=== PATIENT | female | born 1990 | race Caucasian/White ===

== ENCOUNTER 2017-09-15 16:20 | Emergency (ER) | payer MEDICAID ==
[2017-09-15] MEDS ORDERED: NS 1,000 ML IV ONE (17:19)
[2017-09-15] MEDS ORDERED: LORazepam 2 MG/ML INJ IVP ONE (17:19)
--- NOTE | 2017-09-15 17:22 | EDPHY ---
H & P Stated Complaint: N/V for 4 weeks, trying to withdraw from ETOH last drink approx 3 hours ago Time Seen by Provider: 09/15/17 16:56 HPI/ROS: CHIEF COMPLAINT: "I just need to be centered" HISTORY OF PRESENT ILLNESS: 27-year-old female history of bipolar disorder, off of all medications for the past 1.5 years, followed by [facility] , arrives via private vehicle with a friend stating that for the past 4 weeks she has been experiencing recurrent retching and vomiting, has had little to no oral intake. She did have a few bites of soup/ramen last evening however soon thereafter started retching. She has history of alcoholism, has been sober for several months however 2 weeks ago showed drinking heavily, drinks until unconsciousness every evening. Regarding her bipolar disorder, she does experience intermittent suicidal ideation, none currently, no plan. No homicidal ideation She denies abdominal pain. Denies hallucination. Denies seizure. Denies back or flank pain. Denies urinary abnormality. REVIEW OF SYSTEMS: A ten point review of systems was performed and is negative with the exception of the items mentioned in the HPI PAST MEDICAL & SURGICAL HISTORY: Bipolar disorder SOCIAL HISTORY: Last drink of alcohol 3 hr ago PHYSICAL EXAM (Prior to examination, patient consented to physical exam, hands were washed and my usual and customary physical exam procedures followed) 1) GENERAL: Well-developed, well-nourished, alert and oriented. Appears to be in no acute distress. 2) HEAD: Normocephalic, atraumatic 3) HEENT: Pupils equal, round, reactive to light bilaterally. Sclera anicteric. Nasopharynx, oropharynx, clear, no lesions. Dry mucous membranes Ears bilaterally with normal tympanic membranes. 4) NECK: Full range of motion, no meningeal signs. 5) LUNGS: Clear auscultation bilaterally, no wheezes, no rhonchi, no retractions. 6) HEART: Regular rate and rhythm, no murmur, no heave, no gallop. 7) ABDOMEN: No guarding, no rebound, no focal tenderness, negative McBurney's, negative Blackwell's, negative Rovsing's, negative peritoneal sign, unable to elicit any abdominal pain on exam 8) MUSCULOSKELETAL: Moving all extremities, no focal areas of tenderness, no obvious trauma. No peripheral edema or discoloration. 9) BACK: No CVA tenderness, no midline vertebral tenderness, no fluctuance, no step-off, no obvious trauma, no visual or palpable abnormality. 10) SKIN: No rash, no petechiae. 11) Psychiatric: Patient is oriented X 3, there is no agitation. Depressed, withdrawn, flat affect, no tremor DIFFERENTIAL DIAGNOSIS: In no particular order including but not limited to delirium tremens, acute alcohol withdrawal, suicidal ideation - Personal History LMP (Females 10-55): Over 28 Days Ago - Medical/Surgical History Hx Asthma: No Hx Chronic Respiratory Disease: No Hx Diabetes: No Hx Cardiac Disease: No Hx Renal Disease: No Hx Cirrhosis: No Hx Alcoholism: No Hx HIV/AIDS: No Hx Splenectomy or Spleen Trauma: No Other PMH: ETOH abuse - Social History Smoking Status: Never smoked Constitutional: Initial Vital Signs Temperature (C) 37.1 C 09/15/17 16:22 Heart Rate 82 09/15/17 16:22 Respiratory Rate 18 09/15/17 16:22 Blood Pressure 105/81 H 09/15/17 16:22 O2 Sat (%) 93 09/15/17 16:22 O2 Delivery Mode Room Air Allergies/Adverse Reactions: No Known Allergies Allergy (Unverified 09/15/17 16:21) Home Medications: Medication Instructions Recorded NK [No Known Home Meds] 09/15/17 Medical Decision Making ED Course/Re-evaluation: Patient was re-evaluated with serial examinations. At 6:50 p.m. she is sleeping , easily woken, boyfriend at bedside. We discussed her laboratory studies including, her elevated alcohol level. She has had no complaints of abdominal pain. Discussed her normal lipase. Doubt acute pancreatitis. She is concerned that she will start withdrawing from alcohol. [facility], boyfriend will drive her there, given Librium prepack and Zofran. She denies suicidal or homicidal ideations. Denies hallucination. Doubt delirium tremens. I do not think the patient meets criteria for an M1 hold. I do not think she is gravely disabled. She feels comfortable being discharged. Usual and customary discharge precautions and instructions provided. Care of patient under supervision of secondary supervising physician Dr Boss. - Data Points Laboratory Results: Laboratory Results 09/15/17 17:27 09/15/17 17:27 09/15/1718 09/15/17 17:27 17:27 17:27 WBC 4.69 10^3/uL 10^3/uL (3.80-9.50) RBC 4.82 10^6/uL 10^6/uL (4.18-5.33) Hgb 15.0 g/dL g/dL (12.6-16.3) Hct 42.8 % % (38.0-47.0) MCV 88.8 fL fL (81.5-99.8) MCH 31.1 pg pg (27.9-34.1) MCHC 35.0 g/dL g/dL (32.4-36.7) RDW 14.0 % % (11.5-15.2) Plt Count 311 10^3/uL 10^3/uL (150-400) MPV 9.6 fL fL (8.7-11.7) Neut % (Auto) 39.7 % % (39.3-74.2) Lymph % (Auto) 50.7 % H % (15.0-45.0) Darke % (Auto) 7.7 % % (4.5-13.0) Eos % (Auto) 1.1 % % (0.6-7.6) Baso % (Auto) 0.6 % % (0.3-1.7) Nucleat RBC Rel Count 0.0 % % (0.0-0.2) Absolute Neuts (auto) 1.86 10^3/uL 10^3/uL (1.70-6.50) Absolute Lymphs (auto) 2.38 10^3/uL 10^3/uL (1.00-3.00) Absolute Monos (auto) 0.36 10^3/uL 10^3/uL (0.30-0.80) Absolute Eos (auto) 0.05 10^3/uL 10^3/uL (0.03-0.40) Absolute Basos (auto) 0.03 10^3/uL 10^3/uL (0.02-0.10) Absolute Nucleated RBC 0.00 10^3/uL 10^3/uL (0-0.01) Immature Gran % 0.2 % % (0.0-1.1) Immature Gran # 0.01 10^3/uL 10^3/uL (0.00-0.10) Sodium 148 mEq/L H mEq/L (135-145) Potassium 4.0 mEq/L mEq/L (3.5-5.2) Chloride 102 mEq/L mEq/L (97-110) Carbon Dioxide 27 mEq/l mEq/l (22-31) Anion Gap 19 mEq/L H mEq/L (8-16) BUN 10 mg/dL mg/dL (7-23) Creatinine 0.6 mg/dL mg/dL (0.6-1.0) Estimated GFR > 60 Glucose 82 mg/dL mg/dL (70-100) Calcium 9.2 mg/dL mg/dL (8.5-10.4) Total Bilirubin 0.7 mg/dL mg/dL (0.1-1.4) Conjugated Bilirubin 0.5 mg/dL mg/dL (0.0-0.5) Unconjugated Bilirubin 0.2 mg/dL mg/dL (0.0-1.1) AST 47 IU/L H IU/L (14-46) ALT 27 IU/L IU/L (9-52) Alkaline Phosphatase 107 IU/L IU/L (38-126) Total Protein 8.1 g/dL g/dL (6.3-8.2) Albumin 4.6 g/dL g/dL (3.5-5.0) Lipase 56 IU/L IU/L (23-300) Beta HCG, Qual NEGATIVE Specimen Hemolysis 102 Ethyl Alcohol 364 mg/dL H mg/dL (0-10) Medications Given: Discontinued Medications Sodium Chloride (Ns) 1,000 mls @ 0 mls/hr IV ONCE ONE PRN Reason: Wide Open Stop: 09/15/17 17:20 Last Admin: 09/15/17 17:42 Dose: 1,000 mls Lorazepam (Ativan Injection) 1 mg IVP EDNOW ONE Stop: 09/15/17 17:20 Last Admin: 09/15/17 17:47 Dose: Not Given Departure - Departure Disposition: Home, Routine, Self-Care Clinical Impression: Alcohol abuse Condition: Good Instructions: Chlordiazepoxide (By mouth), Ondansetron (By injection), Alcohol Intoxication (ED) Additional Instructions: Return to the ER if you develop tremors, hallucinations, vomiting or any other symptoms that concern you. Referrals: [facility] [Outside] - As per Instructions
[2017-09-15 17:39] LABS: PLATELET COUNT 311 10^3/uL (150-400)
[2017-09-15] MEDS ORDERED: CHLORDIAZEPOXIDE 25MG PREPK#6 BTL TAKEHOME ONE (18:54)
[2017-09-15] MEDS ORDERED: ONDANSETRON 4MG PREPACK#2 BTL TAKEHOME ONE (18:54)
[2017-09-15 19:24] VITALS: BP 101/66
== END 2017-09-15 19:42 | disposition home or self-care (01) ==
DX: R11.10 Vomiting, unspecified (principal); F10.129 Alcohol abuse with intoxication, unspecified
CPT/HCPCS: G0480; J2060

== ENCOUNTER 2018-01-04 13:53 | Emergency (ER) | payer MEDICAID ==
--- NOTE | 2018-01-04 15:12 | EDPHY ---
H & P Time Seen by Provider: 01/04/18 14:54 HPI/ROS: Chief complaint. Abdominal pain HPI. 27-year-old female presents with complaint of abdominal pain for 2 weeks. She has been vomiting and tells me yesterday she vomited 8 times. The pain is both sides low abdomen. She describes as sharp. No radiation. Seems to be worse with eating. No bowel movement for 2 weeks. No fever. No urinary symptoms. Last menstrual. 2 months ago and previously had been regular. No previous abdominal surgery ROS Constitutional. no fever/chills, no weakness Eyes. no problems with vision ENT. no sore throat, no nasal drainage Cardiovascular. no chest pain Respiratory. no shortness of breath, no cough Abdominal. Low abdominal pain with nausea vomiting. Constipation for 2 weeks . no problems urinating MS. no calf pain/swelling, no neck/back pain, no joint pain Skin. no rash Lymph. no swollen glands Neuro. no headache, no dizziness, no difficulty walking or with speech Past Medical/Surgical History: Alcoholism, depression, anorexia, bipolar illness, bulimia Social History: Single, nonsmoker, no alcohol Smoking Status: Never smoked Physical Exam: General Appearance: Alert well-developed female mild distress vital signs are stable Eyes: Pupils equal and round no pallor or injection. ENT, Mouth: Mucous membranes are moist. Respiratory: There are no retractions, lungs are clear to auscultation. Cardiovascular: Regular rate and rhythm. Gastrointestinal: Abdomen is soft with mild bilateral low abdominal tenderness. No masses. No organomegaly. No flank tenderness. Normal bowel sounds Neurological: Awake and alert, sensory and motor exams grossly normal. Skin: Warm and dry, no rashes. Musculoskeletal: Neck is supple nontender. Extremities symmetrical, full range of motion. Psychiatric: Patient is oriented X 3, there is no agitation. Constitutional: Initial Vital Signs Temperature (C) 36.6 C 01/04/18 14:01 Heart Rate 89 01/04/18 14:01 Respiratory Rate 16 01/04/18 14:01 Blood Pressure 117/84 H 01/04/18 14:01 O2 Sat (%) 91 L 01/04/18 14:01 O2 Delivery Mode Room Air Allergies/Adverse Reactions: No Known Allergies Allergy (Unverified 09/15/17 16:21) Medical Decision Making - Diagnostics Imaging Results: Imaging Impressions Abdomen X-Ray 01/04/18 16:58 Impression: Constipation. No evidence of bowel obstruction. Upright abdominal x-ray shows no evidence of free air or air-fluid levels. Consistent with constipation Procedures: IV normal saline ED Course/Re-evaluation: Serial evaluations patient is stable. 6:10 p.m.. Patient and I discussed imaging and lab results. We discussed treatment plan including criteria for return importance of follow-up further evaluation. She expresses understanding and agreement Differential Diagnosis: No evidence for acute abdomen or urinary tract infection. No evidence for bowel obstruction. Consistent with constipation - Data Points Laboratory Results: Laboratory Results 01/04/18 15:40 01/04/18 15:40 01/04/18 01/04/18 01/04/18 17:20 15:40 15:40 WBC RBC Hgb Hct MCV MCH MCHC RDW Plt Count MPV Neut % (Auto) Lymph % (Auto) Placer % (Auto) Eos % (Auto) Baso % (Auto) Nucleat RBC Rel Count Absolute Neuts (auto) Absolute Lymphs (auto) Absolute Monos (auto) Absolute Eos (auto) Absolute Basos (auto) Absolute Nucleated RBC Immature Gran % Immature Gran # Sodium 140 mEq/L mEq/L (135-145) Potassium 3.4 mEq/L mEq/L (3.3-5.0) Chloride 99 mEq/L mEq/L (97-110) Carbon Dioxide 26 mEq/l mEq/l (22-31) Anion Gap 15 mEq/L mEq/L (8-16) BUN 6 mg/dL L mg/dL (7-23) Creatinine 0.6 mg/dL mg/dL (0.6-1.0) Estimated GFR > 60 Glucose 66 mg/dL L mg/dL (70-100) Calcium 8.6 mg/dL mg/dL (8.5-10.4) Total Bilirubin 0.5 mg/dL mg/dL (0.1-1.4) Conjugated Bilirubin 0.1 mg/dL mg/dL (0.0-0.5) Unconjugated Bilirubin 0.4 mg/dL mg/dL (0.0-1.1) AST 177 IU/L H IU/L (14-46) ALT 86 IU/L H IU/L (9-52) Alkaline Phosphatase 116 IU/L IU/L (38-126) Total Protein 6.1 g/dL L g/dL (6.3-8.2) Albumin 3.8 g/dL g/dL (3.5-5.0) Lipase 95 IU/L IU/L (23-300) Beta HCG, Qual NEGATIVE Urine Color YELLOW Urine Appearance MODERATELY TURBID Urine pH 7.0 (5.0-7.5) Ur Specific [place] 1.004 (1.002-1.030) Urine Protein NEGATIVE (NEGATIVE) Urine Ketones NEGATIVE (NEGATIVE) Urine Blood NEGATIVE (NEGATIVE) Urine Nitrate NEGATIVE (NEGATIVE) Urine Bilirubin NEGATIVE (NEGATIVE) Urine Urobilinogen NEGATIVE EU EU (0.2-1.0) Ur Leukocyte Esterase NEGATIVE (NEGATIVE) Urine RBC 1-3 /hpf /hpf (0-3) Urine WBC 3-5 /hpf H /hpf (0-3) Ur Epithelial Cells 2+ /lpf H /lpf (NONE-1+) Urine Bacteria 3+ /hpf H /hpf (NONE SEEN) Urine Glucose NEGATIVE (NEGATIVE) 01/04/18 15:40 WBC 4.36 10^3/uL 10^3/uL (3.80-9.50) RBC 3.84 10^6/uL L 10^6/uL (4.18-5.33) Hgb 13.3 g/dL g/dL (12.6-16.3) Hct 37.2 % L % (38.0-47.0) MCV 96.9 fL fL (81.5-99.8) MCH 34.6 pg H pg (27.9-34.1) MCHC 35.8 g/dL g/dL (32.4-36.7) RDW 16.1 % H % (11.5-15.2) Plt Count 156 10^3/uL 10^3/uL (150-400) MPV 9.9 fL fL (8.7-11.7) Neut % (Auto) 38.5 % L % (39.3-74.2) Lymph % (Auto) 49.1 % H % (15.0-45.0) Placer % (Auto) 10.8 % % (4.5-13.0) Eos % (Auto) 0.5 % L % (0.6-7.6) Baso % (Auto) 0.9 % % (0.3-1.7) Nucleat RBC Rel Count 0.0 % % (0.0-0.2) Absolute Neuts (auto) 1.68 10^3/uL L 10^3/uL (1.70-6.50) Absolute Lymphs (auto) 2.14 10^3/uL 10^3/uL (1.00-3.00) Absolute Monos (auto) 0.47 10^3/uL 10^3/uL (0.30-0.80) Absolute Eos (auto) 0.02 10^3/uL L 10^3/uL (0.03-0.40) Absolute Basos (auto) 0.04 10^3/uL 10^3/uL (0.02-0.10) Absolute Nucleated RBC 0.00 10^3/uL 10^3/uL (0-0.01) Immature Gran % 0.2 % % (0.0-1.1) Immature Gran # 0.01 10^3/uL 10^3/uL (0.00-0.10) Sodium Potassium Chloride Carbon Dioxide Anion Gap BUN Creatinine Estimated GFR Glucose Calcium Total Bilirubin Conjugated Bilirubin Unconjugated Bilirubin AST ALT Alkaline Phosphatase Total Protein Albumin Lipase Beta HCG, Qual Urine Color Urine Appearance Urine pH Ur Specific [place] Urine Protein Urine Ketones Urine Blood Urine Nitrate Urine Bilirubin Urine Urobilinogen Ur Leukocyte Esterase Urine RBC Urine WBC Ur Epithelial Cells Urine Bacteria Urine Glucose Medications Given: Discontinued Medications Sodium Chloride (Ns) 1,000 mls @ 0 mls/hr IV EDNOW ONE; Wide Open PRN Reason: Protocol Stop: 01/04/18 15:22 Last Admin: 01/04/18 15:47 Dose: 1,000 mls Departure - Departure Disposition: Home, Routine, Self-Care Clinical Impression: Abdominal pain Qualifiers: Abdominal location: lower abdomen, unspecified Qualified Code(s): R10.30 - Lower abdominal pain, unspecified Condition: Good Instructions: Constipation (ED), High Fiber Diet (ED) Additional Instructions: Increased fluids including fruit and prune juice. Bisacodyl as directed Milk of magnesia as directed for constipation May purchase a bottle of magnesium citrate at the grocery store and drink whole bottle of magnesium citrate. Return for worsening symptoms. Recheck in 2 days for continuing symptoms Referrals: Montserrat Parry MD [Primary Care Provider] - 2-3 days, if not improved
[2018-01-04] MEDS ORDERED: NS 1,000 ML IV ONE (15:21)
[2018-01-04 15:56] LABS: PLATELET COUNT 156 10^3/uL (150-400)
[2018-01-04 18:25] VITALS: BP 103/74
== END 2018-01-04 18:23 | disposition home or self-care (01) ==
DX: R10.30 Lower abdominal pain, unspecified (principal)

== ENCOUNTER 2018-01-05 03:11 | Emergency (ER) | payer MEDICAID ==
--- NOTE | 2018-01-05 05:18 | EDPHY ---
H & P Stated Complaint: Lower abd pain - no BM in 3 weeks, D/C'd earleir today. Time Seen by Provider: 01/05/18 03:33 HPI/ROS: Chief Complaint: Abdominal pain, constipation HPI: 27-year-old woman presenting with 3 weeks of worsening abdominal pain. Patient states she has not had much appetite. Has not had a bowel movement and 3 weeks. She was seen earlier today in this emergency department. At that time she had abdominal x-ray which showed significant constipation. She was sent home with magnesium citrate recommendation. Patient states she drank magnesium citrate and now has worsening abdominal pain and cramping. She has not had any bowel movements. No fevers or chills. She has vomited several times. ROS: 10 point Review of Systems is negative except as noted in the HPI. PMH: Bulimia and anorexia Social History: No smoking, no alcohol, no recreational drug use Family History: non-contributory Physical Exam: Gen: Awake, Alert, No Distress HEENT: Nose: no rhinorrhea Eyes: PERRLA, EOMI Mouth: Moist mucosa Neck: Supple, no JVD Chest: nontender, lungs clear to auscultation Heart: S1, S2 normal, no murmur Abd: Soft, mildly distended, mild lower abdominal tenderness, no guarding Back: no CVA tenderness, no midline tenderness Ext: no edema, non-tender Skin: no rash Neuro: CN II-XII intact, Sensation grossly intact, Strength 5/5 in bilateral upper and lower extremities - Personal History Current Tetanus/Diphtheria Vaccine: No Current Tetanus Diphtheria and Acellular Pertussis (TDAP): No - Medical/Surgical History Hx Asthma: No Hx Chronic Respiratory Disease: No Hx Diabetes: No Hx Cardiac Disease: No Hx Renal Disease: No Hx Cirrhosis: No Hx Alcoholism: No Hx HIV/AIDS: No Hx Splenectomy or Spleen Trauma: No Other PMH: ETOH abuse, depression, anorexia, bulimia, - Social History Smoking Status: Never smoked Constitutional: Initial Vital Signs Temperature (C) 36.7 C 01/05/18 03:16 Heart Rate 108 H 01/05/18 03:16 Respiratory Rate 16 01/05/18 03:16 Blood Pressure 113/79 01/05/18 03:16 O2 Sat (%) 93 01/05/18 03:16 O2 Delivery Mode Room Air Allergies/Adverse Reactions: No Known Allergies Allergy (Unverified 09/15/17 16:21) Home Medications: Medication Instructions Recorded NK [No Known Home Meds] 01/05/18 Medical Decision Making ED Course/Re-evaluation: I have reviewed the patient's abdominal x-ray. She had significant constipation. Will treat with a high soapsuds enema and reassess. Patient has had success with the enema. She has had a large bowel movement. She is feeling much improved. Abdomen is less distended is soft and nontender. Will discharge her home with constipation instructions, have her follow up with primary care physician for further evaluation. Departure - Departure Disposition: Home, Routine, Self-Care Clinical Impression: Constipation Condition: Good Instructions: Constipation (ED) Additional Instructions: Make sure to drink at least eight 8 oz glasses of water a day. You may take MiraLax daily according to package instructions. If you feel constipated drink 1/2 bottle of magnesium citrate. Wait 1-2 hours. If you do not have a bowel movement after that time drink the 2nd half of the bottle. If you continues to be constipated you may use a Fleet's enema, available over- the-counter. Referrals: Montserrat Parry MD [Primary Care Provider] - As per Instructions
[2018-01-05 05:38] VITALS: BP 110/84
== END 2018-01-05 05:42 | disposition home or self-care (01) ==
DX: K59.00 Constipation, unspecified (principal); F32.9 Major depressive disorder, single episode, unspecified

== ENCOUNTER 2018-01-14 04:43 | Emergency (ER) | payer MEDICAID ==
[2018-01-14] MEDS ORDERED: NS 1,000 ML IV ONE ×2 (04:51)
--- NOTE | 2018-01-14 04:52 | EDPHY ---
H & P Source: Patient, Other - Medical/Surgical History Hx Asthma: No Hx Chronic Respiratory Disease: No Hx Diabetes: No Hx Cardiac Disease: No Hx Renal Disease: No Hx Cirrhosis: No Hx Alcoholism: No Hx HIV/AIDS: No Hx Splenectomy or Spleen Trauma: No Other PMH: ETOH abuse, depression, anorexia, bulimia, - Social History Smoking Status: Never smoked Time Seen by Provider: 01/14/18 04:51 HPI/ROS: HPI CHIEF COMPLAINT: Alcohol intoxication, not feeling well HISTORY OF PRESENT ILLNESS: 27-year-old female, presents emergency room by private vehicle intoxicated with alcohol, additionally she reports she has been feeling unwell. Recently diagnosed with an infection on antibiotics. Per her roommate she has been in bed for the past 5 days however this evening she started drinking alcohol had over 5 shots of liquor. She presents emergency room unable to walking globally weak. She would be taken in carried out of the car by medical staff, additionally wheelchair in back to ER room 5. Upon arrival she is intoxicated smells of alcohol. She states she feels weak all over. Past Medical History: Past medical history significant for bipolar disorder, bulimia, anorexia constipation Past Surgical History: No recent surgery Social History: Alcoholism daily alcohol use. Family History: Noncontributory ROS REVIEW OF SYSTEMS: 10 Systems were reviewed and negative with the exception of the elements mentioned in the history of present illness. Exam Constitutional intoxicated, smells of alcohol triage nursing summary reviewed, vital signs reviewed, awake/alert. This appearing. Eyes normal conjunctivae and sclera, EOMI, PERRLA. HENT normal inspection, atraumatic, moist mucus membranes, no epistaxis, neck supple/ no meningismus, no raccoon eyes. Respiratory clear to auscultation bilaterally, normal breath sounds, no respiratory distress, no wheezing. Cardiovascular rate normal, regular rhythm, no murmur, no edema, distal pulses normal. Gastrointestinal soft, non-tender, no rebound, no guarding, normal bowel sounds, no distension, no pulsatile mass. Genitourinary no CVA tenderness. Musculoskeletal no midline vertebral tenderness, full range of motion, no calf swelling, no tenderness of extremities, no meningismus, good pulses, neurovascularly intact. Skin pink, warm, & dry, no rash, skin atraumatic. Neurologic intoxicated, smells of alcohol, slurring speech awake, alert and oriented x 3, AAOx3, moves all 4 extremities equally, motor intact, sensory intact, CN II-XII intact, normal cerebellar, normal vision Psychiatric normal mood/affect. Heme/Lymph/Immune no lymphadenopathy. Differential Diagnosis: The includes but is not limited to in a particular order alcohol intoxication, dehydration, electrolyte disturbance, infection Medical Decision Making: Plan for this patient IV establishment IV fluid bolus , check electrolytes, CBC, alcohol level. Re-evaluate. Re-evaluation: Serum alcohol noted to be 576 This blood work reviewed. High elevated alcohol level. Signed over to Dr. Walton 7:00 a.m. Shift change. Patient pending sobriety. ( Ilan Mensah) Constitutional: Initial Vital Signs Temperature (C) 36.7 C 01/14/18 04:50 Heart Rate 70 01/14/18 04:50 Respiratory Rate 16 01/14/18 04:50 Blood Pressure 97/60 L 01/14/18 04:50 O2 Sat (%) 96 01/14/18 04:50 O2 Delivery Mode Room Air Allergies/Adverse Reactions: No Known Allergies Allergy (Unverified 09/15/17 16:21) Home Medications: Medication Instructions Recorded NK [No Known Home Meds] 01/05/18 Medical Decision Making Other Provider: [id number]: Patient is ambulatory without issue in the department. She will be discharged home as planned by Dr. Mensah. (Jethro Walton) - Data Points Laboratory Results: Laboratory Results 01/14/18 05:00 01/14/18 05:00 Medications Given: Discontinued Medications Sodium Chloride (Ns) 1,000 mls @ 0 mls/hr IV EDNOW ONE; Wide Open PRN Reason: Protocol Stop: 01/14/18 04:52 Last Admin: 01/14/18 05:13 Dose: 1,000 mls Sodium Chloride (Ns) 1,000 mls @ 0 mls/hr IV EDNOW ONE; Wide Open PRN Reason: Protocol Stop: 01/14/18 04:52 Last Admin: 01/14/18 05:14 Dose: 1,000 mls Departure - Departure Disposition: Home, Routine, Self-Care Clinical Impression: Alcohol intoxication Qualifiers: Complication of substance-induced condition: uncomplicated Qualified Code(s): F10.920 - Alcohol use, unspecified with intoxication, uncomplicated Condition: Fair Instructions: Alcohol Intoxication (ED), Abuse of Alcohol (ED) Additional Instructions: 1. Please stop drinking alcohol. Referrals: [facility] [Outside] - As per Instructions
[2018-01-14 05:22] LABS: PLATELET COUNT 135 10^3/uL (150-400)
[2018-01-14 05:25] LABS: INR 0.94 (0.83-1.16); PROTIME(PATIENT) 12.8 SEC (12.0-15.0)
[2018-01-14 08:10] VITALS: BP 108/68
== END 2018-01-14 08:38 | disposition home or self-care (01) ==
DX: F10.920 Alcohol use, unspecified with intoxication, uncomplicated (principal); F31.9 Bipolar disorder, unspecified
CPT/HCPCS: 80305; G0480

== ENCOUNTER 2018-01-23 13:48 | Emergency (ER) | payer MEDICAID ==
[2018-01-23] MEDS ORDERED: NS 1,000 ML IV ONE (15:18)
--- NOTE | 2018-01-23 15:19 | EDPHY ---
HPI/HX/ROS/PE/MDM Narrative: CHIEF COMPLAINT: I need medical detox HISTORY OF PRESENT ILLNESS: This is a 27-year-old female presents with a friend in a significantly intoxicated state. She apparently has been drinking alcohol heavily for years and admits to being an alcoholic. She had a alcoholic drink shortly before presentation here. She drinks up to a pint of gin per day. Patient went to see a therapist at [facility] today and reports significant alcohol use, alcohol withdrawal history and history becoming very suicidal when she is sober. She tells me that she has bipolar disorder and is using alcohol to treat that. She tells me she has suicidal ideation when she is sober. She reports a prior history of eating disorder. Her proposal lead writer states that when she is sober she is very self critical and expresses significant suicidal ideation. She tells me that she does not want to elaborate on her suicide plan. REVIEW OF SYSTEMS: A comprehensive 10 system review of systems was reviewed and is otherwise negative aside from elements mentioned in the history of present illness. PAST MEDICAL HISTORY: Bipolar disorder, eating disorder, alcoholism SOCIAL HISTORY: Here with a proposal lead writer. Nonsmoker. VITAL SIGNS Reviewed by me. GENERAL: Well-developed, well-nourished, quite somnolent. Arouses easily. HEENT: Atraumatic. Eyes: No icterus, no injection. Mouth: moist mucous membranes. No erythema or lesions. Neck: supple with no adenopathy. LUNGS: Clear to auscultation bilaterally, no wheezes, rhonchi or rales. CARDIAC: Regular rate and rhythm, no rubs, murmurs or gallops. ABDOMEN: Soft, nontender, nondistended, bowel sounds normal. BACK: No CVA tenderness. EXTREMITIES: No trauma. No edema. Range of motion is normal throughout. NEURO: Somnolent but arousable. Grossly nonfocal. Oriented to person and place. SKIN: Warm and dry, no rash. PSYCHIATRIC: Mentation appears appropriate for level of intoxication. (Tash Velasquez) ED Course: IV was placed. Patient received normal saline. Labs are largely unremarkable with the exception of alcohol level. 16:04 Patient's EtOH is 484 17:[address] patient on detainer for suicidal ideation. At 9:00 p.m. Patient is more awake and alert, and reports that she feels a anxious and that that she is starting to withdrawal from alcohol. She is not tachycardic. She is not obviously tremors. Ativan 1 mg and Librium 25 mg administered. Patient placed on a 72 hr mental health hold for continued and ongoing suicidal ideation statements. Patient's care was assumed by Dr. Camden Rizvi at 10:00 p.m.. Patient will need a sober re-evaluation in the morning. (Tash Velasquez) 22:[address] Velasquez pending evaluation a when she is appropriate. The patient does have a history of significant alcohol withdrawal. I put her on a CIAK protocol. 0700 patient signed out to Dr. Cantu pending mental health evaluation. I have had no issues during my care this patient overnight. (Oscar Rizvi) MDM: After the history was obtained and physical exam performed, the following differential for the patient's altered mental status was considered included but was not limited to hypoglycemia, electrolyte disturbances, tumor, drug or alcohol intoxication, stroke, or TIA. (Tash Velasquez) 0750: Patient has been evaluated by mental health and they feel she is safe for discharge to the [facility]. They have dropped the M1 hold. (Bernard Cantu) - Data Points Laboratory Results: Laboratory Results 01/23/18 15:10 01/23/18 15:10 Medications Given: Lorazepam (Ativan Injection) 0 mg IVP Q1H PRN; Protocol PRN Reason: Alcohol Withdrawal w/IV access Stop: 01/24/18 10:11 Last Admin: 01/24/18 06:16 Dose: 2 mg Discontinued Medications Chlordiazepoxide HCl (Librium) 25 mg PO EDNOW ONE Stop: 01/23/18 21:42 Last Admin: 01/23/18 21:48 Dose: 25 mg Clonidine (Catapres) 0.1 mg PO EDNOW ONE Stop: 01/23/18 18:04 Last Admin: 01/23/18 18:16 Dose: Not Given Sodium Chloride (Ns) 1,000 mls @ 0 mls/hr IV ONCE ONE; Wide Open PRN Reason: Protocol Stop: 01/23/18 15:19 Last Admin: 01/23/18 15:25 Dose: 1,000 mls Lorazepam (Ativan Injection) 1 mg IVP EDNOW ONE Stop: 01/23/18 21:42 Last Admin: 01/23/18 21:48 Dose: 1 mg General Time Seen by Provider: 01/23/18 14:59 Initial Vital Signs: Initial Vital Signs Temperature (C) 36.9 C 01/23/18 14:02 Heart Rate 89 01/23/18 14:02 Respiratory Rate 17 01/23/18 14:02 Blood Pressure 113/91 H 01/23/18 14:02 O2 Sat (%) 95 01/23/18 14:02 O2 Delivery Mode Room Air Allergies/Adverse Reactions: No Known Allergies Allergy (Verified 01/23/18 14:02) Home Medications: Medication Instructions Recorded NK [No Known Home Meds] 01/05/18 Departure - Departure Disposition: Home, Routine, Self-Care Clinical Impression: Alcohol intoxication, Alcohol dependence Condition: Good Instructions: Alcohol Dependence (ED) Additional Instructions: [facility] Referrals: Montserrat Parry MD [Primary Care Provider] - As per Instructions Report Scribed for: Tash Velasquez Report Scribed by: Allyn Wheeler Date of Report: 01/23/18 Time of Report: 15:19
[2018-01-23 15:38] LABS: PLATELET COUNT 149 10^3/uL (150-400)
[2018-01-23] MEDS ORDERED: chlordiazePOXIDE 25 MG CAP PO ONE (21:41)
[2018-01-23] MEDS ORDERED: LORazepam 2 MG/ML INJ IVP ONE (21:41)
[2018-01-23] MEDS ORDERED: LORazepam 1 MG TAB PO PRN (22:11)
[2018-01-24] MEDS: LORazepam 2 MG/ML INJ IVP PRN ×4 (01:20→06:16)
[2018-01-24 08:14] VITALS: BP 118/86
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
--- NOTE | 2018-01-24 17:54 | ASMTTCLDSP ---
TLC Discharge Disposition Disposition: Answers: Discharge If Answers: Yes DISCHARGED: Patient/family given suicide hotline info & SAMHSA brochure? Disposition Notes: Notes: Pt stated commitment or ability to keep self safe, denied intent to want to self harm or harm to others. Pt was recommended to have friend Cesar directly transport pt to Withdrawal Management/WIC at [facility] for alcoholism treatment and follow up with prescriber, Montserrat Parry MD. Pt was given local hotline information and SAMHSA brochure After an Attempt. Discharge Concerns/Recommendations: Notes: In consultation with [facility] ED physician, Bernard Cantu MD, Dr. Cantu concurred that pt does not appear to meet 27-65 criteria requiring psychiatric hospitalization as pt does not appear to be an imminent risk of harm to self/others/gravely disabled due to a mental illness condition. Dr. Cantu provided verbal order read back vacating M1 hold at 0740 hrs. Was patient given the Answers: Not applicable Inpatient Behavioral Health Prohibited Belongings List while in the ED? Psychiatrist vacating M1 Bernard Cantu MD Hold: Date and time M1 hold 01/24/2018 07:40 AM vacated (time format is hh:mm): Type of Hold: Answers: M1/72-hour Hold Hold initiated by: Answers: Psychiatrist Date Signed: 01/24/2018 11:15 AM Electronically Signed By:Hunter Carpenter
== END 2018-01-24 08:16 | disposition home or self-care (01) ==
DX: F10.229 Alcohol dependence with intoxication, unspecified (principal); F31.9 Bipolar disorder, unspecified; F50.9 Eating disorder, unspecified
CPT/HCPCS: 80305; 96374; G0480; J2060